=== PATIENT | male | born 1985 | race Hispanic/Latino ===

== ENCOUNTER 2017-05-12 15:12 | Inpatient (IN) | payer OTHER ==
[~2017-05-12] VITALS: Ht 172.7 cm; Wt 99.8 kg
[2017-05-12 15:41] LABS: BASOPHILS % (AUTO) 0.3 % (0.0-5.0); EOSINOPHILS % (AUTO) 1.7 % (0.0-8.0); HEMATOCRIT 42.4 % (42-54); LYMPHOCYTES % (AUTO) 10.6 % (21.0-51.0); MEAN CORPUSCULAR HGB CONC 33.7 g/dL (32.0-36.0); MEAN CORPUSCULAR VOLUME 85.9 fL (79-99); MONOCYTES % (AUTO) 6.9 % (3.0-13.0); NEUTROPHILS % (AUTO) 80.5 % (40.0-77.0); PLATELET COUNT (AUTO) 260 K/uL (130-400); RED BLOOD CELL COUNT(AUTO) 4.94 MIL/uL (4.50-6.20); RED CELL DISTRIBUTION WIDTH 12.9 % (11.0-15.5); WHITE BLOOD COUNT (AUTO) 19.5 K/uL (4.8-10.8)
[2017-05-12] MEDS ORDERED: IOPAMIDOL-370 75 ML VIAL IV ONE (15:46)
[2017-05-12] MEDS ORDERED: ONDANSETRON HCL 4 MG/2 ML VIAL ONE ×2 (15:46→17:19)
[2017-05-12] MEDS ORDERED: SODIUM CHLORIDE 0.9% 1000ML 1,000 ML IV ONE (15:46)
[2017-05-12] MEDS ORDERED: MORPHINE SULFATE 2 MG/ML 1ML SYG ONE ×2 (15:47→21:34)
[2017-05-12 15:52] LABS: CREATININE 1.2 mg/dL (0.5-1.5); POTASSIUM 3.7 mmol/L (3.5-5.1)
[2017-05-12 16:06] LABS: APPEARANCE,URINE Clear (CLEAR); BILIRUBIN,URINE Negative (NEGATIVE); COLOR,URINE Dark Yellow (YELLOW); GLUCOSE, URINE (UA) Negative (NEGATIVE); KETONES,URINE Negative (NEGATIVE); LEUKOCYTE ESTERASE ,URINE Negative (NEGATIVE); NITRATE,URINE Negative (NEGATIVE); OCCULT BLOOD,URINE Negative (NEGATIVE); PROTEIN,URINE POS 1+ (NEGATIVE)
[2017-05-12] MEDS ORDERED: CEFTRIAXONE SODIUM 1 GM ONE (16:13)
[2017-05-12 16:46] LABS: HYALINE CASTS, URINE 0-1 /LPF (0-1 /LPF); MUCUS,URINE Few LPF (None Seen); SQUAMOUS EPITHELIAL CELL,UR 0-2 /LPF (0-2)
[2017-05-12 16:47] LABS: BACTERIA,URINE Few /HPF (None Seen); RBC,URINE 0-1 /HPF (0-1); WBC,URINE 0-1 /HPF (0-1)
[2017-05-12] MEDS ORDERED: METRONIDAZOLE 500MG/100ML BAG 100 ML ONE (17:12)
[2017-05-12] MEDS ORDERED: ACETAMINOPHEN 325 MG TAB ONE ×2 (17:13→22:20)
[2017-05-12] MEDS ORDERED: MORPHINE SULFATE 4 MG/1ML SYG ONE (17:19)
[2017-05-12] MEDS ORDERED: ZOSYN 3.375GM+NS 50ML 50 ML IV ONE (21:32)
[2017-05-12] MEDS ORDERED: LACTATED RINGERS 1000ML 1,000 ML IV ONE (22:02)
[2017-05-13] MEDS ORDERED: METRONIDAZOLE 500MG/100ML BAG 100 ML ONE ×2 (01:14→08:49)
[2017-05-13] MEDS ORDERED: MORPHINE SULFATE 4 MG/1ML SYG ONE (03:13)
[2017-05-13] MEDS ORDERED: ZOSYN 3.375GM+NS 50ML 50 ML IV ONE (04:13)
[2017-05-13 06:04] LABS: BASOPHILS % (AUTO) 0.2 % (0.0-5.0); EOSINOPHILS % (AUTO) 3.7 % (0.0-8.0); HEMATOCRIT 39.7 % (42-54); LYMPHOCYTES % (AUTO) 10.4 % (21.0-51.0); MEAN CORPUSCULAR HEMOGLOBIN 29.8 pg (27.0-33.0); MEAN CORPUSCULAR HGB CONC 34.2 g/dL (32.0-36.0); MEAN CORPUSCULAR VOLUME 86.9 fL (79-99); MONOCYTES % (AUTO) 10.1 % (3.0-13.0); NEUTROPHILS % (AUTO) 75.6 % (40.0-77.0); PLATELET COUNT (AUTO) 242 K/uL (130-400); RED BLOOD CELL COUNT(AUTO) 4.57 MIL/uL (4.50-6.20); RED CELL DISTRIBUTION WIDTH 13.3 % (11.0-15.5); WHITE BLOOD COUNT (AUTO) 15.2 K/uL (4.8-10.8)
[2017-05-13 06:07] LABS: CREATININE 1.1 mg/dL (0.5-1.5)
[2017-05-13 09:47] VITALS: BP 129/82
[2017-05-13] MEDS ORDERED: ONDANSETRON HCL 4 MG/2 ML VIAL IVP PRN (10:15)
[2017-05-13] MEDS ORDERED: ACETAMINOPHEN 325 MG TAB PO PRN (10:15)
[2017-05-13] MEDS ORDERED: MORPHINE SULFATE 2 MG/ML 1ML SYG ONE (10:38)
[2017-05-13] MEDS: LACTATED RINGERS 1000ML 1,000 ML IV SCH ×2 (10:51→17:14)
[2017-05-13] MEDS ORDERED: MORPHINE SULFATE 4 MG/1ML SYG IV PRN ×2 (11:30)
[2017-05-13 11:47] VITALS: BP 136/88
[2017-05-13] MEDS: ZOSYN 3.375GM+NS 50ML 50 ML IV SCH ×2 (13:04→21:21)
[2017-05-13 13:54] VITALS: BP 124/60
[2017-05-13 15:43] VITALS: BP 135/62
[2017-05-13] MEDS: METRONIDAZOLE 500MG/100ML BAG 100 ML IVPB SCH (17:13)
[2017-05-13 19:00] VITALS: BP 139/60
[2017-05-13 23:00] VITALS: BP 115/59
[2017-05-14] MEDS: METRONIDAZOLE 500MG/100ML BAG 100 ML IVPB SCH ×3 (00:14→16:48)
[2017-05-14] MEDS: LACTATED RINGERS 1000ML 1,000 ML IV SCH ×3 (01:50→20:46)
[2017-05-14 03:55] VITALS: BP 119/58
[2017-05-14] MEDS: ZOSYN 3.375GM+NS 50ML 50 ML IV SCH ×3 (04:29→22:03)
[2017-05-14 05:31] LABS: BASOPHILS % (AUTO) 0.3 % (0.0-5.0); EOSINOPHILS % (AUTO) 6.4 % (0.0-8.0); HEMATOCRIT 40.7 % (42-54); LYMPHOCYTES % (AUTO) 10.6 % (21.0-51.0); MEAN CORPUSCULAR HEMOGLOBIN 29.3 pg (27.0-33.0); MEAN CORPUSCULAR HGB CONC 33.6 g/dL (32.0-36.0); MEAN CORPUSCULAR VOLUME 87.2 fL (79-99); MONOCYTES % (AUTO) 9.7 % (3.0-13.0); PLATELET COUNT (AUTO) 269 K/uL (130-400); RED BLOOD CELL COUNT(AUTO) 4.66 MIL/uL (4.50-6.20); RED CELL DISTRIBUTION WIDTH 13.2 % (11.0-15.5); WHITE BLOOD COUNT (AUTO) 12.9 K/uL (4.8-10.8)
[2017-05-14 08:00] VITALS: BP 126/60
[2017-05-14 12:00] VITALS: BP 122/75
[2017-05-14 16:00] VITALS: BP 122/73
[2017-05-14 19:00] VITALS: BP 124/73
[2017-05-15] VITALS: BP 111/65
[2017-05-15] MEDS: METRONIDAZOLE 500MG/100ML BAG 100 ML IVPB SCH ×2 (00:55→08:30)
[2017-05-15] MEDS: ZOSYN 3.375GM+NS 50ML 50 ML IV SCH (03:57)
[2017-05-15 04:00] VITALS: BP 118/79
[2017-05-15 05:39] LABS: BASOPHILS % (AUTO) 0.3 % (0.0-5.0); EOSINOPHILS % (AUTO) 8.6 % (0.0-8.0); HEMATOCRIT 41.4 % (42-54); LYMPHOCYTES % (AUTO) 11.8 % (21.0-51.0); MEAN CORPUSCULAR HEMOGLOBIN 29.4 pg (27.0-33.0); MEAN CORPUSCULAR HGB CONC 34.2 g/dL (32.0-36.0); MONOCYTES % (AUTO) 10.8 % (3.0-13.0); NEUTROPHILS % (AUTO) 68.5 % (40.0-77.0); PLATELET COUNT (AUTO) 290 K/uL (130-400); RED BLOOD CELL COUNT(AUTO) 4.81 MIL/uL (4.50-6.20); RED CELL DISTRIBUTION WIDTH 12.9 % (11.0-15.5); WHITE BLOOD COUNT (AUTO) 10.6 K/uL (4.8-10.8)
[2017-05-15 05:49] LABS: CREATININE 1.1 mg/dL (0.5-1.5); POTASSIUM 4.1 mmol/L (3.5-5.1)
[2017-05-15] MEDS: LACTATED RINGERS 1000ML 1,000 ML IV SCH (08:39)
[2017-05-15 08:43] VITALS: BP 136/83
[2017-05-15] MEDS ORDERED: CEPH500B PO (10:23)
[2017-05-15 11:32] VITALS: BP 119/77
== END 2017-05-15 16:05 | disposition home or self-care (01) | DRG 872 ==
LOC: EDH 15:12 → EDHIP 17:35 → 4CH 05-13 09:27
PROVIDERS: ADMIT Surgery; ATTEND Surgery
DX: A41.9 Sepsis, unspecified organism (principal); K57.20 Diverticulitis of large intestine with perforation and abscess without bleeding; Z28.21 Immunization not carried out because of patient refusal
CPT/HCPCS: 36415; 74177; 80048; 81001; 85025; 87040; 99291; J0696; J2270; J2405; J2543; J3490; J7030; J7120; Q9967